=== PATIENT | female | born 2000 | race Caucasian/White ===

== ENCOUNTER 2022-02-22 14:27 | Emergency (ER) | payer OTHER ==
[2022-02-22 14:41] VITALS: BP 114/80; PULSE 100; RESP 20; TEMP 98.2; BMI 17.2
[2022-02-22] MEDS ORDERED: SODIUM CHLORIDE 0.9% 1000 ML INFUS.BAG IV ONE ×2 (15:12→16:32)
[2022-02-22] MEDS ORDERED: ACETAMINOPHEN 1000 MG/100 ML BAG IVPB ONE (15:12)
[2022-02-22] MEDS ORDERED: ONDANSETRON 4 MG/2 ML VIAL IVPUSH ONE (15:12)
[2022-02-22] MEDS ORDERED: ONDANSETRON 4 MG/2 ML VIAL ONE (15:24)
[2022-02-22] MEDS ORDERED: ACETAMINOPHEN INJECTION 100 ML IVPB ONE (15:24)
[2022-02-22 16:14] LABS: HEMATOCRIT 39.3 % (32.4-45.2); MCH 30.4 pg (25.7-33.7); MCHC 35.6 g/dl (32.0-36.0); MEAN CELL VOLUME 85.5 fl (80-96); MEAN PLT VOLUME 7.3 fl (7.5-11.1); PLATELET COUNT 347.1 10^3/uL (134-434); RDW 13.7 % (11.6-15.6); WHITE BLOOD COUNT 9.8 10^3/uL (4.0-10.8)
[2022-02-22 16:20] LABS: ALBUMIN 4.6 g/dl (3.4-5.0); BILIRUBIN,TOTAL 0.6 mg/dl (0.2-1); CALCIUM 9.6 mg/dl (8.5-10); CREATININE 0.6 mg/dl (0.55-1.3); TOT PROT 7.5 g/dl (6.4-8.2)
== END 2022-02-22 19:09 | disposition home or self-care (01) ==
LOC: FER 14:27
PROC: 3E033GC Introduction of Other Therapeutic Substance into Peripheral Vein, Percutaneous Approach (ICD-10-PCS; principal; 2022-02-22)
DX: N94.6 Dysmenorrhea, unspecified (principal)
CPT/HCPCS: 0241U-QW; 36415; 76856-TC; 80053; 81003; 81015; 81025; 85027; 87086; 99284-25